=== PATIENT | female | born 1955 | race Two or more races ===

== ENCOUNTER 2022-05-12 10:53 | Outpatient (CLI) | payer MEDICARE, MEDICAID | END 2022-05-12 23:59 | disposition home or self-care (01) | LOC: MSC 10:53 | PROVIDERS: ATTEND Anesthesiology | DX: M47.816 Spondylosis without myelopathy or radiculopathy, lumbar region (principal); M40.299 Other kyphosis, site unspecified; G89.4 Chronic pain syndrome; M25.561 Pain in right knee; M25.562 Pain in left knee; Z96.652 Presence of left artificial knee joint; Z79.891 Long term (current) use of opiate analgesic; Z79.899 Other long term (current) drug therapy ==